=== PATIENT | male | born 1980 | race Asian ===

== ENCOUNTER 2016-10-05 12:51 | Emergency (ER) | payer SELFPAY ==
[~2016-10-05] VITALS: Ht 170.2 cm; Wt 86.2 kg
[2016-10-05] MEDS ORDERED: NKM (13:00)
--- NOTE | 2016-10-05 13:13 | Emergency Room Report ---
History of Present Illness General Chief Complaint: Medication Refill Source: Patient Present Illness HPI 36-year-old male presents emergency department complaining of asthma exacerbation and requiring medication refills. Patient is also inquiring about prescription for Primamist. Patient states that previously he is to use that medication and that worked really well was available [id number] however he states that no one is available. he reports wheezing states that he typically only has a moderate asthma attack once or twice per year. Patient denies recent illness, recent travel, or ill contacts. Patient states he is a current smoker. Denies CP, Palpitations, LOC, AMS, dizziness, Changes in Vision , Sensation, paresthesias, or a sudden severe headache. Allergies: Coded Allergies: No Known Allergies (Unverified , 10/05/16) Patient History Past Medical History: see triage record Past Surgical History: none Pertinent Family History: none Immunizations: UTD Reviewed Nursing Documentation: PMH: Agreed, PSxH: Agreed Nursing Documentation-PMH Hx Asthma: Yes Review of Systems All Other Systems: negative except mentioned in HPI Physical Exam Vital Signs Date Time Temp Pulse Resp B/P Pulse Ox O2 Delivery O2 Flow Rate FiO2 10/05/16 12:55 98.1 95 16 125/82 96 Room Air Sp02 EP Interpretation: reviewed, normal General Appearance: no apparent distress, alert, GCS 15, non-toxic Head: normocephalic, atraumatic Eyes: bilateral eye PERRL, bilateral eye normal inspection ENT: hearing grossly normal, normal pharynx, no angioedema, normal voice Neck: full range of motion, supple/symm/no masses Respiratory: chest non-tender, speaking full sentences, wheezing - expiratory wheezes Cardiovascular #1: regular rate, rhythm, no edema Musculoskeletal: back normal, gait/station normal, normal range of motion, non- tender Neurologic: alert, oriented x3, responsive, motor strength/tone normal, sensory intact, speech normal Psychiatric: judgement/insight normal, memory normal, mood/affect normal, no suicidal/homicidal ideation Skin: normal color, no rash, warm/dry, well hydrated Lymphatic: no adenopathy Medical Decision Making PA Attestation Dr. Blackwell is my supervising Physician whom patient management has been discussed with. Diagnostic Impression: Primary Impression: Asthma exacerbation Additional Impression: Encounter for medication refill ER Course 36-year-old male presents emergency department complaining of asthma exacerbation and requiring medication refills. Patient is also inquiring about prescription for primamist. Patient states that previously he is to use that medication and that worked really well was available [id number] however he states that no one is available. he reports wheezing states that he typically only has a moderate asthma attack once or twice per year. Patient denies recent illness. Patient states he is a current smoker. Ddx considered but are not limited to asthma exacerbation, CHF, URI, pneumonia, PE, strep pharyngitis, meningitis. Vital signs: Pt. is afebrile, VS are WNL H&PE are most consistent with URI, asthma exacerbation, expiratory wheezes bilaterally. ORDERS: none required at this time, the diagnosis is clinical ED INTERVENTIONS: -Pt declines ED albuterol Nebulized treatment. DISCHARGE: At this time pt. is stable for d/c to home. Will provide printed patient care instructions, and any necessary prescriptions. Care plan and follow up instructions have been discussed with the patient prior to discharge. Last Vital Signs Date Time Temp Pulse Resp B/P Pulse Ox O2 Delivery O2 Flow Rate FiO2 10/05/16 12:55 98.1 95 16 125/82 96 Room Air Disposition: HOME, SELF-CARE Condition: Stable Scripts Prednisone* (PREDNISONE*) 20 Mg Tablet 40 MG ORAL DAILY for 5 Days, #10 TAB Prov: Denise Pearce 10/05/16 Fluticasone/Salmeterol (ADVAIR HFA 115-21 MCG INHALER) 12 Gm Hfa.aer.ad 2 PUFFS INH EVERY 12 HOURS, #1 EA Prov: Denise Pearce 10/05/16 Albuterol Sulfate* (ALBUTEROL SULFATE MDI*) 8.5 Gm Hfa.aer.ad 2 PUFF INH Q3H, #1 INH 0 Refills Prov: Denise Pearce 10/05/16 Patient Instructions: Asthma, Adult, [id number], Medicine Refill at the Emergency Department Additional Instructions: Take medications as directed. Follow up with PCP in 3-5 days Return sooner to ED if new symptoms occur, or current symptoms become worse. - Please note that this Emergency Department Report was dictated using [employer] lead technology software, occasionally this can lead to erroneous entry secondary to interpretation by the dictation equipment. Denise Pearce Oct 05, 2016 13:13
[2016-10-05] MEDS ORDERED: ADVAIR HFA 115-12 GM INH (13:14)
[2016-10-05] MEDS ORDERED: ALBUTEROL SULF8.5 GM INH (13:14)
[2016-10-05] MEDS ORDERED: PREDNISONE20 MG ORAL (13:14)
[2016-10-05 13:34] VITALS: BP 125/82
[2016-10-05 13:38] VITALS: BP 125/82
== END 2016-10-05 13:50 | disposition home or self-care (01) ==
LOC: EMR 13:45
DX: J45.909 Unspecified asthma, uncomplicated (principal); Z76.0 Encounter for issue of repeat prescription
CPT/HCPCS: 99284